=== PATIENT | male | born 1950 | race Caucasian/White ===

== ENCOUNTER 2024-07-12 16:27 | Emergency (ER) | payer MEDICARE ==
[~2024-07-12] VITALS: Ht 167.6 cm; Wt 64.0 kg
[2024-07-12 17:08] LABS: BASO % 0.7 % (0.0-1.0); EOS % 0.7 % (1.0-4.0); HEMATOCRIT 40.9 % (42.0-52.0); MEAN CELL VOLUME 90.9 fl (80.0-94.0); MEAN CORPUSCULAR HGB 32.4 pg (27.0-31.0); MEAN CORPUSCULAR HGB CONC 35.7 g/dl (33.0-37.0); MEAN PLATELET VOLUME 8.4 fl (9.6-12.3); MONO # 0.5 10*3/uL (0.1-1.0); MONO % 8.3 % (3.0-9.0); NEUT # 4.1 10*3/uL (2.3-7.9); NEUT % 75.2 % (47.0-73.0); PLATELET COUNT AUTOMATED 280 10*3/uL (130-400); RED CELL DISTRI WIDTH 12.1 % (0-14.5); WHITE BLOOD COUNT 5.4 10*3/uL (4.8-10.8)
[2024-07-12 17:27] LABS: BUN 20 mg/dl (9-23); CHLORIDE 106 mmol/L (98-107); POTASSIUM 3.6 mmol/L (3.4-5.1)
[2024-07-12 17:28] LABS: ETHYL ALCOHOL < 3.0 mg/dl (<3)
[2024-07-23] MEDS ORDERED: DIVALPROEX SOD250 MG PO (08:24)
[2024-07-23] MEDS ORDERED: MIRTAZAPINE15 M2 PO (08:24)
[2024-07-23] MEDS ORDERED: RIVASTIGMINE1 EAC2 T (08:24)
[2024-07-23] MEDS ORDERED: MEMANTINE HCL10 MG PO (08:24)
[2024-07-23] MEDS ORDERED: NATURE'S BLEND100 M2 PO (08:39)
== END 2024-07-12 20:52 ==
LOC: ED 16:27
PROVIDERS: Emergency Medicine
DX: F43.21 Adjustment disorder with depressed mood (principal); F41.9 Anxiety disorder, unspecified; Z20.822 Contact with and (suspected) exposure to COVID-19